=== PATIENT | male | born 1995 | race African-American/Black ===

== ENCOUNTER → 2019-04-04 | Outpatient (CLI) | payer OTHER ==
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
--- NOTE | 2019-04-04 12:59 | KCIC ---
Examination: MRI of the right shoulder without contrast HISTORY: Shoulder pain COMPARISON: None available Technique: Multiplanar, multisequence MR imaging of the right shoulder was performed without contrast FINDINGS: The long head of the biceps tendon within the bicipital groove. The attachment of the long head the biceps tendon to the superior labral anchor grossly appears intact. The attachment of the subscapularis tendon, supraspinatus tendon, infraspinatus tendon grossly appears intact. No evidence of full-thickness tear. The visualized labrum grossly appears intact.The acromion is type I. The muscle bulk grossly appears unremarkable. Fat is present within the rotator interval. IMPRESSION: 1. No evidence of full-thickness rotator cuff tear. 2. The labrum appears intact. Electronically signed by: Bill Childress MD (04/04/2019 12:56 PM) [id number]
== END | disposition home or self-care (01) ==
LOC: KCIC MRI 10:54
PROVIDERS: ATTEND Orthopaedic Surgery
DX: M25.511 Pain in right shoulder (principal); M25.512 Pain in left shoulder
CPT/HCPCS: 73221